=== PATIENT | male | born 1990 | race African-American/Black ===

== ENCOUNTER 2017-02-02 09:35 | Emergency (ER) | payer SELFPAY ==
[~2017-02-02] VITALS: Ht 175.3 cm; Wt 79.5 kg
[~2017-02-02 09:35] MED LIST: ANUSOL-HC SUPPO25 MG RC; BACTRIM DS 8001 TAB PO; CARAFATE 1GM1 G PO; CEPHALEXIN500 M1 PO; FLEXERIL 1010 MG/TAB PO; GENTAMICIN EYE D5 ML OD; GENTAMICIN OPTHA3 GM OS; ILOTYCIN5 MG/GM OP; LORTAB 5/500 501 TAB PO; MEDROL 4MG DOSPA4 MG PO; MOTRIN 800800 MG/TAB PO; NAPROSYN500 MG PO; NO HOME MEDICATIONS; NORCO 325 MG-51 TAB PO; NORCO 325 MG-7.1 TAB PO; PHENERGAN 25 TA25 MG PO; PRILOSEC 20MG20 MG PO; SEPTRA DS 8001 TAB PO; ULTRAM 50MG TAB50 MG PO; ZOVIRAX 200MG200 MG PO
[2017-02-02 09:38] VITALS: BP 137/87; PULSE 71
[2017-02-02] MEDS ORDERED: FLEXERIL 1010 MG/TAB PO (09:59)
[2017-02-02 10:43] VITALS: TEMP 98.1
== END 2017-02-02 10:26 | disposition home or self-care (01) ==
LOC: COL.ER 09:35
DX: S39.012A Strain of muscle, fascia and tendon of lower back, initial encounter (principal); X50.9XXA Other and unspecified overexertion or strenuous movements or postures, initial encounter
CPT/HCPCS: J2360

== ENCOUNTER 2017-03-21 08:48 | Emergency (ER) | payer SELFPAY ==
[~2017-03-21] VITALS: Ht 175.3 cm; Wt 81.8 kg
[2017-03-21 08:55] VITALS: BP 145/87; TEMP 98.2
[2017-03-21 09:35] VITALS: PULSE 80
== END 2017-03-21 09:32 | disposition home or self-care (01) ==
LOC: COL.ER 08:48
DX: S61.412A Laceration without foreign body of left hand, initial encounter (principal); W01.110A Fall on same level from slipping, tripping and stumbling with subsequent striking against sharp glass, initial encounter; Y92.008 Other place in unspecified non-institutional (private) residence as the place of occurrence of the external cause

== ENCOUNTER 2017-09-02 07:30 | Emergency (ER) | payer MEDICAID ==
[~2017-09-02] VITALS: Ht 172.7 cm; Wt 81.8 kg
[2017-09-02 07:35] VITALS: BP 134/78; TEMP 98.2
[2017-09-02] MEDS ORDERED: NORCO 325 MG-51 TAB PO (08:21)
[2017-09-02 08:44] VITALS: PULSE 84
== END 2017-09-02 08:45 | disposition home or self-care (01) ==
LOC: COL.ER 07:30
DX: S39.011A Strain of muscle, fascia and tendon of abdomen, initial encounter (principal); Z87.891 Personal history of nicotine dependence; X50.0XXA Overexertion from strenuous movement or load, initial encounter; Y92.009 Unspecified place in unspecified non-institutional (private) residence as the place of occurrence of the external cause
CPT/HCPCS: J1885; J2360

== ENCOUNTER 2017-09-29 12:17 | Emergency (ER) | payer MEDICAID ==
[~2017-09-29] VITALS: Ht 172.7 cm; Wt 81.8 kg
[2017-09-29 12:36] VITALS: TEMP 101.4
[2017-09-29 13:54] LABS: INFLUENZA A NEGATIVE; INFLUENZA B NEGATIVE
[2017-09-29 15:01] VITALS: BP 108/68; PULSE 89
== END 2017-09-29 15:02 | disposition home or self-care (01) ==
LOC: COL.ER 12:17
PROVIDERS: Physician Assistant
DX: J11.1 Influenza due to unidentified influenza virus with other respiratory manifestations (principal); Z87.891 Personal history of nicotine dependence

== ENCOUNTER 2017-12-08 11:35 | Emergency (ER) | payer MEDICAID ==
[~2017-12-08] VITALS: Ht 172.7 cm; Wt 81.8 kg
[2017-12-08 11:54] VITALS: BP 125/73; PULSE 77; TEMP 98
[2017-12-08] MEDS ORDERED: NORCO 325 MG-51 TAB PO (15:34)
== END 2017-12-08 15:40 | disposition home or self-care (01) ==
LOC: COL.ER 11:35
DX: S60.221A Contusion of right hand, initial encounter (principal); W00.0XXA Fall on same level due to ice and snow, initial encounter; Y92.009 Unspecified place in unspecified non-institutional (private) residence as the place of occurrence of the external cause

== ENCOUNTER 2018-02-17 09:37 | Emergency (ER) | payer MEDICAID ==
[~2018-02-17] VITALS: Ht 170.2 cm; Wt 90.9 kg
[2018-02-17 09:59] VITALS: BP 119/81; PULSE 65; TEMP 98.7
[2018-02-17] MEDS ORDERED: NAPROXEN 3375 MG/TAB PO (10:49)
== END 2018-02-17 11:05 | disposition home or self-care (01) ==
LOC: COL.ER 09:37
DX: G56.01 Carpal tunnel syndrome, right upper limb (principal); X50.3XXA Overexertion from repetitive movements, initial encounter

== ENCOUNTER 2018-06-12 14:10 | Emergency (ER) | payer MEDICAID ==
[~2018-06-12] VITALS: Ht 172.7 cm; Wt 90.9 kg
[~2018-06-12 14:10] MED LIST changes: +NAPROXEN 3375 MG/TAB PO
[2018-06-12 14:18] VITALS: BP 128/85; PULSE 93; TEMP 99.1
[2018-06-12] MEDS ORDERED: FLEXERIL 1010 MG/TAB PO (16:24)
== END 2018-06-12 16:38 | disposition home or self-care (01) ==
LOC: COL.ER 14:10
DX: S39.012A Strain of muscle, fascia and tendon of lower back, initial encounter (principal); F12.90 Cannabis use, unspecified, uncomplicated; Z87.891 Personal history of nicotine dependence; X50.0XXA Overexertion from strenuous movement or load, initial encounter
CPT/HCPCS: J1885; J2360

== ENCOUNTER 2018-09-28 17:42 | Emergency (ER) | payer MEDICAID ==
[~2018-09-28] VITALS: Ht 172.7 cm; Wt 93.2 kg
[2018-09-28 17:49] VITALS: BP 130/90; PULSE 87; TEMP 98
[2018-09-28] MEDS ORDERED: ZOFRAN ODT4 MG PO (18:20)
[2018-09-28] MEDS ORDERED: DOXYCYCLINE 10100 MG PO (18:59)
== END 2018-09-28 18:47 | disposition home or self-care (01) ==
LOC: COL.ER 17:42
DX: T62.91XA Toxic effect of unspecified noxious substance eaten as food, accidental (unintentional), initial encounter (principal); R11.10 Vomiting, unspecified; R19.7 Diarrhea, unspecified; F17.210 Nicotine dependence, cigarettes, uncomplicated

== ENCOUNTER 2018-09-30 23:00 | Emergency (ER) | payer MEDICAID ==
[~2018-09-30] VITALS: Ht 172.7 cm; Wt 93.2 kg
[~2018-09-30 23:00] MED LIST changes: +DOXYCYCLINE 10100 MG PO; +ZOFRAN ODT4 MG PO
[2018-09-30 23:13] VITALS: TEMP 98.3
[2018-09-30 23:47] LABS: COLLECTION METHOD CLEAN CATCH
[2018-09-30 23:50] LABS: BASO # 0.1 (0.0-0.2); BASO % 0.7 % (0.0-2.0); EOS # 0.2 (0.0-0.7); EOS % 2.2 % (0-4.0); GRAN # 2.7 (1.4-6.5); GRAN % 36.1 % (42.2-75.2); HEMATOCRIT 41.1 % (42.0-52.0); HEMOGLOBIN 13.8 g/dl (13.5-18.0); LYMPH # 3.8 (1.2-3.4); LYMPH % 51.9 % (20.0-51.0); MEAN CELL VOLUME 91 fl (80.0-100.0); MEAN CORPUSCULAR HEMOGLOBIN 31 pg (27.0-31.0); MEAN CORPUSCULAR HGB CONC 34 g/dl (33.0-37.0); MEAN PLATELET VOLUME 9.4 fl (7.4-10.4); MONO # 0.7 (0.1-0.6); MONO % 8.8 % (1.7-9.3); PLATELET COUNT 226 K/mm3 (130-400); RED BLOOD COUNT 4.51 M/mm3 (4.20-5.60); REDCELL DISTRIBUTION WIDTH-CV 13.3 % (11.5-14.5)
[2018-09-30 23:56] LABS: PH 7 (5-8); SQUAMOUS EPITHELIAL 0-2 /hpf; URINE APPEARANCE Clear; URINE BACTERIA None Seen /hpf; URINE BILIRUBIN Negative (NEGATIVE); URINE BLOOD Negative (NEGATIVE); URINE COLOR Yellow; URINE GLUCOSE Negative (NEGATIVE); URINE KETONE Negative (NEGATIVE); URINE LEUKOCYTE ESTERASE Negative (NEGATIVE); URINE NITRATE Negative (NEGATIVE); URINE PROTEIN(semi-quant) Negative (NEGATIVE); URINE RBC 0-2 /hpf; URINE UROBILINOGEN Negative (NEGATIVE)
[2018-10-01 00:02] LABS: ALANINE AMINOTRANSFERASE 43 U/L (21-72); ALBUMIN 4.1 gm/dL (3.5-5.0); ALKALINE PHOSPHATASE 37 U/L (50-136); ANION GAP 5 mmol/L (7-16); AST,SGOT 36 U/L (15-37); BILIRUBIN,TOTAL < 0.1 mg/dL (0.0-1.0); BLOOD UREA NITROGEN 16 mg/dL (9-20); CALCIUM 9.1 mg/dL (8.4-10.2); CARBON DIOXIDE 30 mmol/L (22-30); CHLORIDE 107 mmol/L (98-107); CREATININE, serum 1.34 mg/dL (0.66-1.25); GLUCOSE 106 mg/dL (74-106); LIPASE 79 U/L (23-300); POTASSIUM 3.9 mmol/L (3.4-5.0); SODIUM 142 mmol/L (137-145); TOTAL PROTEIN 6.7 gm/dL (6.4-8.2)
[2018-10-01 00:03] LABS: C-REACTIVE PROTEIN < 0.5 mg/dL (0.0-0.9)
[2018-10-01] MEDS ORDERED: PROTONIX 40MG T40 MG PO (00:35)
[2018-10-01 01:09] VITALS: BP 102/66; PULSE 71
== END 2018-10-01 01:19 | disposition home or self-care (01) ==
LOC: COL.ER 23:00
PROVIDERS: Emergency Medicine
DX: R10.12 Left upper quadrant pain (principal); F17.210 Nicotine dependence, cigarettes, uncomplicated
CPT/HCPCS: C9113; J1885; J7030

== ENCOUNTER 2019-01-16 06:18 | Emergency (ER) | payer MEDICAID ==
[~2019-01-16] VITALS: Ht 175.3 cm; Wt 90.9 kg
[~2019-01-16 06:18] MED LIST changes: +PROTONIX 40MG T40 MG PO
[2019-01-16 06:21] VITALS: BP 123/82; TEMP 98
[2019-01-16] MEDS ORDERED: FLEXERIL 1010 MG/TAB PO (07:50)
[2019-01-16 08:13] VITALS: PULSE 74
== END 2019-01-16 08:14 | disposition home or self-care (01) ==
LOC: COL.ER 06:18
DX: S43.401A Unspecified sprain of right shoulder joint, initial encounter (principal); Y93.72 Activity, wrestling; Y92.009 Unspecified place in unspecified non-institutional (private) residence as the place of occurrence of the external cause